=== PATIENT | male | born 1955 | race Caucasian/White ===

== ENCOUNTER 2018-01-08 12:37 | Emergency (ER) | payer SELFPAY, MEDICAID ==
[2018-01-08] MEDS: LIDOCAINE 1% (MDV) 20 ML INJ SC (15:33)
== END 2018-01-08 16:58 | disposition home or self-care (01) ==
LOC: FTE 12:37
DX: S61.411A Laceration without foreign body of right hand, initial encounter (principal); E11.9 Type 2 diabetes mellitus without complications; W26.8XXA Contact with other sharp object(s), not elsewhere classified, initial encounter; Y92.89 Other specified places as the place of occurrence of the external cause
CPT/HCPCS: 12002; 99283-25

== ENCOUNTER 2018-01-10 09:54 | Emergency (ER) | payer SELFPAY | END 2018-01-10 10:50 | disposition home or self-care (01) | LOC: FTE 10:50 | DX: Z48.01 Encounter for change or removal of surgical wound dressing (principal) | CPT/HCPCS: 99281 ==